=== PATIENT | female | born 1985 | race Caucasian/White ===

== ENCOUNTER 2017-07-21 15:59 | Emergency (ER) | payer MEDICAID ==
[~2017-07-21] VITALS: Ht 154.9 cm; Wt 75.6 kg
[~2017-07-21 15:59] MED LIST: CEPH-572 PO; NO HOME MEDS; SULF1TAB49 PO
[2017-07-21 16:06] VITALS: BP 120/68
== END 2017-07-21 17:11 | disposition home or self-care (01) ==
LOC: ER 16:00
DX: L03.011 Cellulitis of right finger (principal); Z79.899 Other long term (current) drug therapy
CPT/HCPCS: 26010; 99283

== ENCOUNTER 2017-08-12 14:36 | Emergency (ER) | payer MEDICAID ==
[~2017-08-12] VITALS: Ht 545.9 cm; Wt 75.9 kg
[~2017-08-12 14:36] MED LIST changes: -CEPH-572 PO; -SULF1TAB49 PO
[2017-08-12 14:48] VITALS: BP 119/72
[2017-08-12] MEDS ORDERED: LIDOcaine 1.5% w/epinephrine 1:200,000 5ml ampul IJ ONE (17:00)
[2017-08-12] MEDS ORDERED: BACDS PO (17:52)
== END 2017-08-12 18:15 | disposition home or self-care (01) ==
LOC: ER 14:36
DX: L02.211 Cutaneous abscess of abdominal wall (principal); Z79.899 Other long term (current) drug therapy
CPT/HCPCS: 10060; 99283; A6266; J3490

== ENCOUNTER 2017-08-15 10:59 | Emergency (ER) | payer MEDICAID ==
[~2017-08-15] VITALS: Ht 154.9 cm; Wt 75.0 kg
[~2017-08-15 10:59] MED LIST changes: +BACDS PO
[2017-08-15 11:05] VITALS: BP 111/74
[2017-08-15] MEDS ORDERED: bacitracin 15gm ointment TP ONE (12:30)
== END 2017-08-15 13:14 | disposition home or self-care (01) ==
LOC: ER 11:00
DX: L02.211 Cutaneous abscess of abdominal wall (principal); Z79.899 Other long term (current) drug therapy
CPT/HCPCS: 99283; A6266; A6449

== ENCOUNTER → 2018-01-24 | Emergency (ER) | payer MEDICAID ==
[~2018-01-24] VITALS: Ht 154.9 cm; Wt 70.9 kg
[~2018-01-24] MED LIST changes: +AMOX500C2 PO; -BACDS PO
[2018-01-24 15:35] VITALS: BP 107/70
== END | disposition home or self-care (01) ==
LOC: ER 15:31
DX: K04.7 Periapical abscess without sinus (principal); F17.200 Nicotine dependence, unspecified, uncomplicated; Z79.899 Other long term (current) drug therapy; Z79.2 Long term (current) use of antibiotics
CPT/HCPCS: 99283